=== PATIENT | male | born 1995 | race Caucasian/White ===

== ENCOUNTER 2018-11-07 05:00 | Emergency (ER) | payer OTHER ==
[2018-11-07] MEDS ORDERED: MAG HYDROX/AL HYDROX/SIMETH 30 ML UDCUP PO ONE (05:16)
[2018-11-07] MEDS ORDERED: LIDOCAINE 2% VISCOUS 15 ML UDCUP PO ONE (05:16)
--- NOTE | 2018-11-07 05:20 | EDPHY ---
H & P Stated Complaint: woke up at 0100 with stabbing CP unable to go back to sleep Time Seen by Provider: 11/07/18 05:06 HPI/ROS: Chief Complaint: Chest pain HPI: 23-year-old male woke from sleep this morning with pain in his upper chest and back. Pain will come from a sleep. Does not have a history of similar pain in the past. About a 5 on 10. He does have a history of asthma and any used his inhaler without any relief. Pain persisted. Pain started about 1:00 a.m. In the morning. Mild shortness of breath. It feels tight to take a deep breath. No cough. No fevers or chills. He was recently diagnosed with epilepsy a month ago and started on Vimpat. He has had no difficulties with this. He also has a history of a heart surgery as an to correct a defect. No family history of coronary artery disease or sudden cardiac . No recent travel. No leg pain or swelling. ROS: 10 systems were reviewed and were negative except those elements noted in the HPI. 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 Social History: No smoking, rare alcohol, no recreational drug use Family History: non-contributory Physical Exam: Gen: Awake, Alert, No Distress HEENT: Nose: no rhinorrhea Eyes: PERRLA, EOMI Mouth: Moist mucosa Neck: Supple, no JVD Chest: nontender, lungs clear to auscultation, midline sternotomy scar Heart: S1, S2 normal, no murmur Abd: Soft, non-tender, no guarding Back: no CVA tenderness, no midline tenderness Ext: no edema, non-tender Skin: no rash Neuro: CN II-XII intact, Sensation grossly intact, Strength 5/5 in bilateral upper and lower extremities - Personal History Current Tetanus/Diphtheria Vaccine: Yes Current Tetanus Diphtheria and Acellular Pertussis (TDAP): Yes - Medical/Surgical History Hx Asthma: Yes Hx Chronic Respiratory Disease: No Hx Diabetes: No Hx Cardiac Disease: No Hx Renal Disease: No Other PMH: sz, heart valve surgery at 1yrs old - Social History Smoking Status: Never smoked Constitutional: Initial Vital Signs Temperature (C) 36.5 C 11/07/18 05:01 Heart Rate 69 11/07/18 05:01 Respiratory Rate 16 11/07/18 05:01 Blood Pressure 142/99 H 11/07/18 05:01 O2 Sat (%) 98 11/07/18 05:01 O2 Delivery Mode Room Air Allergies/Adverse Reactions: No Known Allergies Allergy (Unverified 11/07/18 05:04) Home Medications: Medication Instructions Recorded Albuterol 11/07/18 Vimpat 11/07/18 Medical Decision Making - Diagnostics EKG Interpretation: ECG time 5:09 a.m., sinus rhythm with a rate of 52, nonspecific intraventricular conduction delay with LAD, J-point elevation, changes consistent with prior cardiac surgery, no acute ST or T-wave ischemic changes. Imaging Results: Chest x-ray is negative per my interpretation. Imaging: I viewed and interpreted images myself ED Course/Re-evaluation: 23-year-old male presenting with chest discomfort which woke him this morning. He has no risk factors for coronary disease or thromboembolic disease. His perc score is 0. ECG shows changes consistent with prior heart surgery but no acute ischemia. Will check a troponin and chest x-ray and re-evaluate. Will also give a GI cocktail to see if this helps in his discomfort. Troponin is 0. Chest x-ray is negative per my interpretation. No acute ischemic changes on his ECG. No relief with a GI cocktail. Think his symptoms are likely musculoskeletal in nature. He has not have any risk factors for cardiac or respiratory process. Vital signs are normal. Will discharge with follow-up with primary care physician, return for any concerns. - Data Points Laboratory Results: 11/07/18 05:27 POC Troponin I 0.00 ng/mL ng/mL (0.00-0.08) Medications Given: Discontinued Medications Al Hydroxide/Mg Hydroxide (Maalox Susp) 30 ml PO ONCE ONE Stop: 11/07/18 05:17 Last Admin: 11/07/18 05:20 Dose: 30 ml Lidocaine (Lidocaine 2% Viscous) 15 ml PO ONCE ONE Stop: 11/07/18 05:17 Last Admin: 11/07/18 05:20 Dose: 15 ml Point of Care Test Results: Chemistry 11/07/18 05:27 POC Troponin I 0.00 ng/mL ng/mL (0.00-0.08) Departure - Departure Disposition: Home, Routine, Self-Care Clinical Impression: Chest pain Condition: Good Instructions: Chest Pain (ED) Additional Instructions: Follow up with primary care physician in 2-3 days for further evaluation. Return to the emergency department for worsening chest pain, shortness of breath , fainting, or any other concerns. Referrals: Festus Carmona MD [Medical Doctor] - As per Instructions Kamran Singh MD [Medical Doctor] - As per Instructions
[2018-11-07] MEDS ORDERED: KETOROLAC 15 MG/1 ML SDV IVP ONE (05:45)
[2018-11-07] MEDS ORDERED: KETOROLAC 15 MG/1 ML SDV ONE (05:46)
[2018-11-07] MEDS ORDERED: NS 1,000 ML IV ONE (05:47)
[2018-11-07 06:20] VITALS: BP 122/71
--- NOTE | 2018-11-07 06:26 | CPEKG ---
Test Reason : OPEN Blood Pressure : / mmHG Vent. Rate : 052 BPM Atrial Rate : 054 BPM P-R Int : 178 ms QRS Dur : 126 ms QT Int : 452 ms P-R-T Axes : 045 -40 064 degrees QTc Int : 421 ms Sinus rhythm Probable left atrial enlargement Nonspecific IVCD with LAD ST elev, probable normal early repol pattern Confirmed by Michael Servin ([id number]) on 11/07/2018 6:26:39 AM Referred By: Michael Servin Confirmed By:Michael Servin
== END 2018-11-07 06:22 | disposition home or self-care (01) ==
DX: R07.9 Chest pain, unspecified (principal); E86.9 Volume depletion, unspecified
CPT/HCPCS: 84484-ER; 96374; J1885